=== PATIENT | female | born 1985 | race Two or more races ===

== ENCOUNTER 2018-10-19 10:30 | Inpatient (IN) | payer OTHER ==
[~2018-10-19] VITALS: Ht 175.3 cm; Wt 88.5 kg
[2018-10-31] MEDS ORDERED: PRENATAL TABLE1 EAC1 PO (18:50)
[2018-10-31] MEDS ORDERED: MIRALAX17 GM PO (18:51)
[2018-11-03] MEDS ORDERED: TUSSI-PRES B LIQ5 ML PO (13:38)
[2018-11-03] MEDS ORDERED: IBUPROFEN800 MG PO (13:38)
== END 2018-11-03 14:41 | disposition home or self-care (01) | DRG 807 ==
LOC: LDR 10-31 17:28 → SURG-SUITE 11-01 18:36 → LDR 11-04 10:30
PROVIDERS: ADMIT Obstetrics & Gynecology
PROC: 4A1HXCZ Monitoring of Products of Conception, Cardiac Rate, External Approach (ICD-10-PCS; 2018-10-31)
PROC: 10E0XZZ Delivery of Products of Conception, External Approach (ICD-10-PCS; principal; 2018-11-01)
PROC: 0KQM0ZZ Repair Perineum Muscle, Open Approach (ICD-10-PCS; 2018-11-01)
PROC: 3E033VJ Introduction of Other Hormone into Peripheral Vein, Percutaneous Approach (ICD-10-PCS; 2018-11-01)
DX: O70.1 Second degree perineal laceration during delivery (principal); Z37.0 Single live birth; Z3A.39 39 weeks gestation of pregnancy